=== PATIENT | male | born 1970 | race Caucasian/White ===

== ENCOUNTER → 2022-04-08 12:59 | Outpatient (BNVA) | payer OTHER, SELFPAY | PROVIDERS: Visit Provider Emergency Medicine | DX: A93.8 Other specified arthropod-borne viral fevers (principal); S40.869A Insect bite (nonvenomous) of unspecified upper arm, initial encounter; W57.XXXA Bitten or stung by nonvenomous insect and other nonvenomous arthropods, initial encounter; J11.1 Influenza due to unidentified influenza virus with other respiratory manifestations | CPT/HCPCS: 86618; 86666; 86757 ==